=== PATIENT | female | born 1955 | race Caucasian/White ===

== ENCOUNTER 2021-05-23 09:31 | Outpatient (CLI) | payer BC ==
[2021-05-23 17:36] LABS: SARS-CoV-2 PCR by NAA Not Detected (NotDetected)
== END 2021-05-23 09:32 | disposition home or self-care (01) ==
LOC: CSHLAB 09:31
PROVIDERS: ATTEND Internal Medicine Gastroenterology
DX: Z01.812 Encounter for preprocedural laboratory examination (principal); Z20.822 Contact with and (suspected) exposure to COVID-19
CPT/HCPCS: U0003; U0005

== ENCOUNTER 2021-05-26 06:01 | Day surgery (SDC) | payer BC ==
[2021-05-24 13:56] VITALS: BMI 21.2
[2021-05-26] MEDS ORDERED: Lidocaine 1% MPF 2 ML VIAL ONE (06:48)
[2021-05-26] MEDS ORDERED: Phenylephrine 10 MG/ML VIAL ONE (07:08)
[2021-05-26] MEDS ORDERED: Lidocaine 1% PF 5 ML VIAL ONE (07:16)
[2021-05-26] MEDS ORDERED: PROPOFOL 40 ML ONE (07:16)
[2021-05-26] MEDS ORDERED: Glycopyrrolate 0.2 MG/ML 5 ML SYRINGE ONE (07:23)
[2021-05-26] MEDS ORDERED: ePHEDrine Sulfate 50 MG/10 ML VIAL ONE (07:53)
== END 2021-05-26 08:36 | disposition home or self-care (01) ==
LOC: CSHSDC 06:01
PROVIDERS: ATTEND Internal Medicine Gastroenterology
PROC: 0DJD8ZZ Inspection of Lower Intestinal Tract, Via Natural or Artificial Opening Endoscopic (ICD-10-PCS; principal; 2021-05-26)
DX: Z12.11 Encounter for screening for malignant neoplasm of colon (principal); K62.89 Other specified diseases of anus and rectum; K64.9 Unspecified hemorrhoids; M81.0 Age-related osteoporosis without current pathological fracture; Z90.710 Acquired absence of both cervix and uterus
CPT/HCPCS: J2370; J2704